=== PATIENT | male | born 1950 | race American Indian/Alaskan Native ===

== ENCOUNTER 2021-05-20 10:20 | Emergency (ER) | payer MEDICARE, OTHER ==
--- NOTE | 2021-05-20 11:25 | Emergency Department Report ---
ED Fall HPI - General Stated Complaint: FALL Time Seen by Provider: 05/20/21 11:14 Source: patient, EMS - History of Present Illness Initial Comments: Patient is 70 years old male with history of left sided weakness secondary stro ke. Patient brought to the emergency room from a local snf for evaluation after a fall that happened last night. Patient is trying to get out of his bed and he fell landed on the right side. Patient stated that he does not want to come to the ER but they said his protocol for him to come to the ER to be evaluated. Patient denied any pain or discomfort. He denied any headache, neck pain, back pain, hip pain, lower extremity pain. He also denied any dizziness or lightheadedness. MD Complaint: fall -: Last night Fall From: out of bed Fall Witnessed: yes, by living facility s Place Fall Occurred: snf/SNF Loss of Consciousness: none Prolonged Down Time?: no Symptoms Prior to Fall: none Associated Symptoms: denies - Related Data Home Medications Medication Instructions Recorded Confirmed Last Taken Acetaminophen [Aphen] 325 mg PO PRN 05/20/21 Unknown Atorvastatin [Lipitor] 40 mg PO DAILY 05/20/21 05/20/21 05/19/21 09:00 Capsaicin 0.075% [Zostrix Hp 0.025 tube TP TID PRN 05/20/21 05/20/21 Unknown 0.075%] Clopidogrel [Plavix] 75 mg PO QDAY 05/20/21 05/20/21 05/19/21 09:00 Lidocaine [Blue-Emu Lidocaine 1 each TP PRN PRN 05/20/21 05/20/21 Unknown Patch] Melatonin [Melatonin 3MG TAB] 3 mg PO HS 05/20/21 05/20/21 05/19/21 19:00 Tamsulosin [Flomax] 0.4 mg PO DAILY 05/20/21 05/20/21 05/19/21 09:00 amLODIPine 10 mg PO DAILY 05/20/21 05/20/21 05/19/21 09:00 risperiDONE [RisperDAL] 4 mg PO BID 05/20/21 05/20/21 05/19/21 17:00 ED Review of Systems ROS: Stated complaint: FALL Other details as noted in HPI Comment: All other systems reviewed and negative Constitutional: denies: chills, fever Respiratory: denies: cough, shortness of breath, SOB with exertion, SOB at rest Cardiovascular: denies: chest pain, palpitations Gastrointestinal: denies: abdominal pain, nausea, vomiting Musculoskeletal: denies: back pain Neurological: denies: headache ED Past Medical Hx - Medications Home Medications: Home Medications Medication Instructions Recorded Confirmed Last Taken Type Acetaminophen [Aphen] 325 mg PO PRN 05/20/21 Unknown History Atorvastatin [Lipitor] 40 mg PO DAILY 05/20/21 05/20/21 05/19/21 09:00 History Capsaicin 0.075% [Zostrix Hp 0.025 tube TP TID PRN 05/20/21 05/20/21 Unknown History 0.075%] Clopidogrel [Plavix] 75 mg PO QDAY 05/20/21 05/20/21 05/19/21 09:00 History Lidocaine [Blue-Emu Lidocaine 1 each TP PRN PRN 05/20/21 05/20/21 Unknown History Patch] Melatonin [Melatonin 3MG TAB] 3 mg PO HS 05/20/21 05/20/21 05/19/21 19:00 History Tamsulosin [Flomax] 0.4 mg PO DAILY 05/20/21 05/20/21 05/19/21 09:00 History amLODIPine 10 mg PO DAILY 05/20/21 05/20/21 05/19/21 09:00 History risperiDONE [RisperDAL] 4 mg PO BID 05/20/21 05/20/21 05/19/21 17:00 History ED Physical Exam - General General appearance: alert, in no apparent distress - Head Head exam: Present: atraumatic, normocephalic, normal inspection - Eye Eye exam: Present: normal appearance, PERRL - ENT ENT exam: Present: normal exam, normal orophraynx, mucous membranes moist - Neck Neck exam: Present: normal inspection, full ROM. Absent: tenderness, meningismus - Respiratory Respiratory exam: Present: normal lung sounds bilaterally - Cardiovascular Cardiovascular Exam: Present: regular rate, normal rhythm, normal heart sounds - GI/Abdominal GI/Abdominal exam: Present: soft, normal bowel sounds. Absent: distended, tenderness, guarding, rebound, rigid, organomegaly, mass, bruit, pulsatile mass, hernia - Extremities Exam Extremities exam: Present: normal inspection, full ROM, normal capillary refill. Absent: tenderness - Back Exam Back exam: Present: normal inspection, full ROM. Absent: CVA tenderness (R), CVA tenderness (L) - Neurological Exam Neurological exam: Present: alert, oriented X3, motor sensory deficit - Psychiatric Psychiatric exam: Present: normal mood - Skin Skin exam: Present: warm, normal color ED Medical Decision Making - Medical Decision Making Patient is 70 years old male with history of left sided weakness secondary stroke. Patient brought to the emergency room from a local snf for evaluation after a fall that happened last night. Patient is trying to get out of his bed and he fell landed on the right side. Patient stated that he does not want to come to the ER but they said his protocol for him to come to the ER to be evaluated. Patient denied any pain or discomfort. He denied any headache, neck pain, back pain, hip pain, lower extremity pain. He also denied any dizziness or lightheadedness. Patient remained stable in the ER with stable vital sign. No obvious injury. Patient is able to to move his hip in a full range of motion with no discomfort. I do not believe patient will need any x-ray at this moment. Patient will be returned back to his snf patient with a fall precaution and advised to return to the ER if he develop any symptoms. Critical care attestation.: If time is entered above; I have spent that time in minutes in the direct care of this critically ill patient, excluding procedure time. ED Disposition Clinical Impression: Accident due to mechanical fall without injury Disposition: HOME / SELF CARE / HOMELESS Is pt being admited?: No Condition: Stable Instructions: Fall Prevention in the Home, Adult Referrals: PRIMARY CARE, [Referring] - 3-5 Days
[2021-05-20 13:51] VITALS: BP 133/63
== END 2021-05-20 13:45 | disposition home or self-care (01) ==
LOC: ED 10:20
DX: R53.1 Weakness (principal); Z79.899 Other long term (current) drug therapy; W18.39XA Other fall on same level, initial encounter; Y93.89 Activity, other specified; Y92.89 Other specified places as the place of occurrence of the external cause; Y99.8 Other external cause status
CPT/HCPCS: 99283